=== PATIENT | female | born 1995 | race Two or more races ===

== ENCOUNTER 2017-09-14 05:47 | Emergency (ER) | payer MEDICAID ==
[~2017-09-14] VITALS: Ht 157.5 cm; Wt 59.0 kg
--- NOTE | 2017-09-14 06:05 | NUR ---
Pt ambulates to ER with c/o left flank pain for 2 hrs [employer]. Pt states she feels nauseous + constipated.
--- NOTE | 2017-09-14 06:09 | NUR ---
Urine sent to lab.
[2017-09-14 06:18] LABS: *BILIRUBIN,URIN NEGATIVE (NEGATIVE); *BLOOD, URINE 3+ (NEGATIVE); *CLARITY,URINE SLIGHTLY CLOUDY (CLEAR); *COLOR,URINE YELLOW (YELLOW); *KETONES,URINE NEGATIVE (NEGATIVE); *PROTEIN,URINE 1+ (NEGATIVE); *UROBILINOGEN,URINE 0.2 E.U./dl (NORMAL); LEUKOCYTE ESTERASE ,URINE 1+ (NEGATIVE); NITRITE, URINE NEGATIVE (NEGATIVE); PH,URINE 6.5 (5.0-8.0); UGLUCOSE NEGATIVE (NEGATIVE)
[2017-09-14 06:24] LABS: BACTERIA,URINE FEW /HPF (NONE SEEN); SQUAMOUS EPITHELIAL CELL,UR FEW /HPF (NONE SEEN)
[2017-09-14] MEDS ORDERED: HYDROMORPHONE 2 MG/1 ML DISP.SYRIN ONE (06:45)
[2017-09-14] MEDS ORDERED: ONDANSETRON 4 MG/2 ML VIAL ONE (06:45)
[2017-09-14] MEDS ORDERED: KETOROLAC TROMETHAMINE 30 MG INJ ONE (06:45)
[2017-09-14] MEDS ORDERED: ONDANSETRON 4 MG/2 ML VIAL IV ONE (06:45)
[2017-09-14] MEDS ORDERED: KETOROLAC TROMETHAMINE 15 MG INJ IV ONE (06:45)
[2017-09-14] MEDS ORDERED: IV NORMAL SALINE 1000 ML BAG IV ONE (06:45)
[2017-09-14] MEDS ORDERED: HYDROMORPHONE 1 MG/1 ML DISP.SYRIN IV ONE (06:45)
[2017-09-14 07:00] LABS: *URINE HCG, QUAL NEGATIVE (NEGATIVE)
--- NOTE | 2017-09-14 07:00 | NUR ---
Handoff report given to Serge DURAN.
[2017-09-14] MEDS ORDERED: SULFAMETH/TRIMETH 800/160 MG TABLET PO ONE (08:15)
[2017-09-14] MEDS ORDERED: SULFAMETH/TRIMETH 800/160 MG TABLET ONE (08:16)
--- NOTE | 2017-09-14 08:19 | NUR ---
Patient discharged to home in stable conditon. Written and verbal after care instructions given. Patient verbalizes understanding of instructions.pt walks in steady gait. pt deneis any pain or nausea at this point. pt with so. pt not driving
[2017-09-14 08:21] VITALS: BP 129/89
== END 2017-09-14 08:23 | disposition home or self-care (01) ==
LOC: ER 05:49
DX: N39.0 Urinary tract infection, site not specified (principal); N83.201 Unspecified ovarian cyst, right side
CPT/HCPCS: 84703; A4663; J1170; J1885; J2405; J7030